=== PATIENT | male | born 1965 | race Caucasian/White ===

== ENCOUNTER → 2020-12-22 | Day surgery (SDC) | payer MEDICARE ==
[~2020-12-22] VITALS: Ht 177.8 cm; Wt 123.8 kg
[~2020-12-22] MED LIST: ALLEGRA ALLERG180 MG PO; ASPIRIN81 MG PO; CLOPIDOGREL75 MG PO; FLONASE 0.05% N16 GM; HYDROCODON-ACE1 EAC4 PO; ISOSORBIDE MONO30 MG PO; LISINOPRIL10 MG PO; LOPRESSOR 50 MG50 MG PO; NITROSTAT0.4 MG SL; PROTONIX 40 MG40 M1 PO
[2020-12-22 08:11] LABS: HEMOGLOBIN 15.7 gm/dl (14.0-17.5); RED BLOOD COUNT 5.22 M/UL (4.20-5.50); WHITE BLOOD COUNT 5.8 K/UL (4.5-11.0)
[2020-12-22 08:28] LABS: BUN/CREATININE RATIO 21 (0-10)
== END | disposition home or self-care (01) ==
LOC: OR 12-21 17:30
PROVIDERS: Orthopaedic Surgery
PROC: 0LN80ZZ Release Left Hand Tendon, Open Approach (ICD-10-PCS; principal; 2020-12-22 12:40)
DX: M65.342 Trigger finger, left ring finger (principal); I10 Essential (primary) hypertension; E78.5 Hyperlipidemia, unspecified; I25.10 Atherosclerotic heart disease of native coronary artery without angina pectoris; J44.9 Chronic obstructive pulmonary disease, unspecified; K44.9 Diaphragmatic hernia without obstruction or gangrene; R73.9 Hyperglycemia, unspecified; K21.9 Gastro-esophageal reflux disease without esophagitis; E66.9 Obesity, unspecified; Z79.02 Long term (current) use of antithrombotics/antiplatelets; Z79.82 Long term (current) use of aspirin; Z79.899 Other long term (current) drug therapy; Z95.5 Presence of coronary angioplasty implant and graft
CPT/HCPCS: 36415; 80048; 83036; 85025; J0690; J1100; J2001; J2250; J2405; J2704; J3010; J7120

== ENCOUNTER → 2021-11-16 | Outpatient (CLI) | payer MEDICARE | LOC: DTC 15:07 | DX: E66.9 Obesity, unspecified (principal) ==